=== PATIENT | male | born 1980 | race Caucasian/White ===

== ENCOUNTER 2017-08-14 15:55 | Emergency (ER) | payer SELFPAY ==
[~2017-08-14] VITALS: Ht 182.9 cm; Wt 74.4 kg
[2017-08-14] MEDS ORDERED: DIPH,PERTUSS(ACELL),TET VAC/PF 0.5 ML IM-VACC ONE ×2 (16:56→17:00)
[2017-08-14] MEDS ORDERED: LIDOCAINE-MPF 1%, 5ML INFIL ONE (17:00)
[2017-08-14] MEDS ORDERED: INSU100I13 SQ (17:23)
[2017-08-14] MEDS ORDERED: BACITRACIN ZINC OINT 500U/GM, 0.9 GM ONE (17:34)
[2017-08-14 17:51] VITALS: BP 138/93
== END 2017-08-14 18:29 | disposition home or self-care (01) ==
LOC: ED 18:15
DX: S61.231A Puncture wound without foreign body of left index finger without damage to nail, initial encounter (principal); S61.211A Laceration without foreign body of left index finger without damage to nail, initial encounter; L03.012 Cellulitis of left finger; W26.0XXA Contact with knife, initial encounter; X58.XXXA Exposure to other specified factors, initial encounter; Y93.89 Activity, other specified; Y92.098 Other place in other non-institutional residence as the place of occurrence of the external cause; Y99.8 Other external cause status
CPT/HCPCS: 90715; 96372